=== PATIENT | male | born 1995 | race Caucasian/White ===

== ENCOUNTER 2018-09-16 07:36 | Emergency (ER) | payer OTHER ==
[2018-09-16] MEDS ORDERED: Ibuprofen TAB* 400 MG PO ONE (08:12)
--- NOTE | 2018-09-16 08:12 | UC ---
Throat Pain/Nasal Chace HPI - HPI Summary HPI Summary: 22 y/o male presents to the urgent care c/o subjective fever, headache, intermittent sore throat aggravated by swallowing, myalgias, chills, "a little bit at night" sweats, and fatigue for two to three days. Sore throat has become constant and worse in the last 24 hours, pain w/ swallowing is 5/10. Bilateral tonsillar swelling and erythema. Minimal improvement with OTC "cold and flu" medication. Positive strep throat one month ago. Patient is concerned about mono but states Hx of Mononucleosis at age 7 and since then he has hyperthrophic tonsils. Pt has not taking any medication today for fever or pain. Pt denies SOB, URI, cough, chest pain, abdominal pain, N/V/D. He has been drinking fluids and eating well. - History of Current Complaint Chief Complaint: UCGeneralIllness Stated Complaint: THROAT,FEVER Time Seen by Provider: 09/16/18 08:10 Hx Obtained From: Patient Onset/Duration: Gradual Onset, Lasting Days - 3 days, Still Present, Worse Since - yesterday Severity: Moderate Pain Intensity: 5 Pain Scale Used: 0-10 Numeric Cough: None Associated Signs & Symptoms: Positive: Dysphagia, Fever. Negative: Wheezing, Sinus Discomfort, Nasal Discharge, Rash - Epiglottits Risk Factors Epiglottis Risk Factors: Negative - Allergies/Home Medications Allergies/Adverse Reactions: Allergies Allergy/AdvReac Type Severity Reaction Status Date / Time No Known Allergies Allergy Verified 09/16/18 08:04 PMH/Surg Hx/FS Hx/Imm Hx Previously Healthy: Yes Other Endocrine History: Mononucleosis at age 7 - Surgical History Surgical History: Yes Surgery Procedure, Year, and Place: Pilonidal Cystectomy, 2015, [place] - Family History Known Family History: Positive: None - Pt denies FMHX - Social History Occupation: Student Lives: With Family Alcohol Use: Occasionally Substance Use Type: None Smoking Status (MU): Never Smoked Tobacco - Immunization History Vaccination Up to Date: Yes Review of Systems All Other Systems Reviewed And Are Negative: Yes Constitutional: Positive: Fever, Chills, Fatigue, Other - body aches Skin: Positive: Negative Eyes: Positive: Negative ENT: Positive: Sore Throat Respiratory: Positive: Negative Cardiovascular: Positive: Negative Gastrointestinal: Positive: Negative Genitourinary: Positive: Negative Motor: Positive: Negative Neurovascular: Positive: Negative Musculoskeletal: Positive: Myalgia Neurological: Positive: Headache Psychological: Positive: Negative Is Patient Immunocompromised?: No Physical Exam - Summary Physical Exam Summary: VITAL SIGNS: Reviewed. GENERAL: Patient is a well developed and nourished male who is sitting comfortable in the examining table. Patient is not in any acute respiratory distress. HEAD AND FACE: No signs of trauma. No ecchymosis, hematomas or skull depressions. No sinus tenderness. EYES: PERRLA, EOMI x 2, No injected conjunctiva, no nystagmus. No photophobia. EARS: Hearing grossly intact. Ear canals and tympanic membranes are within normal limits. MOUTH: Positive pharynx with erythema, exudates, palatal petechiae. B/L tonsillar enlargement with mild exudate. Uvula in midline. NECK: Supple, trachea is midline, Positive anterior cervical lymphadenopathy, no JVD, no carotid bruit, no c-spine tenderness, neck with full ROM. No meningeal signs, no Kernig's or brudzinskis signs. CHEST: Symmetric, no tenderness at palpation LUNGS: Clear to auscultation bilaterally. No wheezing or crackles. CVS: Regular rate and rhythm, S1 and S2 present, no murmurs or gallops appreciated. ABDOMEN: Soft, non-tender. No signs of distention. No rebound no guarding, and no masses palpated. Bowel sounds are normal. EXTREMITIES: FROM in all major joints, no edema, no cyanosis or clubbing. NEURO: Alert and oriented x 3. No acute neurological deficits. Speech is normal and follows commands. SKIN: Dry and warm Triage Information Reviewed: Yes Vital Signs: Initial Vital Signs Temp 101.5 F 09/16/18 08:01 Pulse 134 09/16/18 08:01 Resp 18 09/16/18 08:01 BP 132/74 09/16/18 08:01 Pulse Ox 98 09/16/18 08:01 Throat Pain/Nasal Course/Dx - Course Course Of Treatment: 22 y/o male presents to the urgent care c/o subjective fever, headache, intermittent sore throat aggravated by swallowing, myalgias, chills, "a little bit at night" sweats, and fatigue for two to three days. Sore throat has become constant and worse in the last 24 hours, pain w/ swallowing is 5/10. Bilateral tonsillar swelling and erythema. Minimal improvement with OTC "cold and flu" medication. Positive strep throat one month ago. Patient is concerned about mono but states Hx of Mononucleosis at age 7 and since then he has hyperthrophic tonsils. Pt has not taking any medication today for fever or pain. Pt denies SOB, URI, cough, chest pain, abdominal pain, N/V/D. He has been drinking fluids and eating well. Hx obtained. Pt febrile w/ tonsillitis on examination. Rapid strep ordered, result: negative. Rapid Influenza A&B: negative. Pt given Ibuprofen PO by the nurse for fever. Pt tolerated well medication and temp. decrease to 99.8F. Monospot and CBC and throat culture ordered and sent to lab to r/o any abnormality. Pt will be notified of any results. Pt had a vasovagal syncope episode while blood was drowned by the nurse. Pt placed on [place] position and after 5 minutes pat felt better. Pt Rx ibuprofen PO andn Prednisone as directed below to alleviates symptoms of pain and swelling. Advised on hand washing to avoid spreading. Pt advised to rest, eat well and avoid strenuous exercise. If symptoms do not improve or worsen advised to return to the urgent care or f/u with PCP for further evaluation and treatment. Pt understood and agreed - Differential Dx/Diagnosis Differential Diagnosis/HQI/PQRI: Influenza, Laryngitis, Mononucleosis, Pharyngitis, Tonsillitis Provider Diagnosis: Acute tonsillitis Discharge - Sign-Out/Discharge Documenting (check all that apply): Patient Departure - D/C home All imaging exams completed and their final reports reviewed: No Studies - Discharge Plan Condition: Stable Disposition: HOME Prescriptions: Ibuprofen TAB* [Motrin TAB* 600 MG] 600 mg PO Q6H PRN #30 tab PRN Reason: pain/fever predniSONE TAB* [Deltasone 20 MG TAB*] 20 mg PO DAILY #11 tab Patient Education Materials: Tonsillitis (ED) Referrals: [facility] [place] [facility] REFERRAL [Outside] - 3 Days Additional Instructions: 1-Please take ibuprofen PO q6-8hrs prn as instructed after meals to alleviate pain and swelling. Increase fluid intake, eat well, rest and avoid strenuous exercise 2-If symptoms do not improve or worsen please return to the urgent care or f/u with your PCP in 2-3 days for further evaluation and treatment. - Billing Disposition and Condition Condition: STABLE Disposition: Home
[2018-09-16 08:36] LABS: Influenza A Molecular NEGATIVE (Negative); Influenza B Molecular NEGATIVE (Negative)
[2018-09-16 08:57] VITALS: BP 122/66
[2018-09-16 14:55] LABS: ABS Lymphocytes 1.1 10^3/ul (1.0-4.8); ABS Monocytes 1.2 10^3/ul (0-0.8); ABS Neutrophils 10.1 10^3/ul (1.5-7.7); Eosinophil % 0.1 %; Hematocrit 46 % (42-52); Hemoglobin 15.3 g/dL (14.0-18.0); Lymphocyte % 8.7 %; Mean Corpuscular HGB Conc 34 g/dL (31-36); Mean Corpuscular Hemoglobin 30 pg (27-31); Mean Corpuscular Volume 88 fL (80-94); Mean Platelet Volume 9.2 fL (7.4-10.4); Nucleated Red Blood Cells % 0.3; Platelet Count 233 10^3/uL (150-450); Red Blood Count 5.19 10^6 /uL (4.18-5.48); Red Cell Distribution Width 14 % (10.5-15); White Blood Count 12.5 10^3/uL (3.5-10.8)
--- NOTE | 2018-09-17 07:46 | UC ---
- Progress Note Progress Note: Lab results are available for review: CBC with white blood cell count of 12.5, neutrophils at 81% She is diagnosed with acute tonsillitis and is being treated with prednisone and ibuprofen. Flu is negative, strep is negative, Monospot negative RN to call the patient and informed him of results. If she is not improving, she can start antibiotics. She is not allergic to any medication. I have prescribed amoxicillin to the pharmacy. Follow-up with the primary care doctor in 1 week. Course/Dx - Diagnoses Provider Diagnoses: Acute tonsillitis Discharge - Sign-Out/Discharge Documenting (check all that apply): Post-Discharge Follow Up All imaging exams completed and their final reports reviewed: No Studies - Discharge Plan Condition: Stable Disposition: HOME Prescriptions: Ibuprofen TAB* [Motrin TAB* 600 MG] 600 mg PO Q6H PRN #30 tab PRN Reason: pain/fever predniSONE TAB* [Deltasone 20 MG TAB*] 20 mg PO DAILY #11 tab Patient Education Materials: Tonsillitis (ED) Referrals: [facility] [place] [facility] REFERRAL [Outside] - 3 Days Additional Instructions: 1-Please take ibuprofen PO q6-8hrs prn as instructed after meals to alleviate pain, fever and swelling. Take Prednisone PO as directed to alleviate swelling. Increase fluid intake, eat well, rest and avoid strenuous exercise. You can alternate w/ Tylenol PO if fever can't be controlled. 2- Mononuclosis, CBC and throat culture sent to lab to r/o any abnormality. You will be notified of any abnormal result for further management 3-If symptoms do not improve or worsen please return to the urgent care or f/u with your PCP in 3 days for further evaluation and treatment. 4- If fever persists despite taking medication and symptoms worsen, please go immediately to the ER for further evaluation and treatment. - Billing Disposition and Condition Condition: STABLE Disposition: Home
[2018-09-19 14:42] LABS: EBV Capsid Ag IgG Ab Positive (Negative); EBV Capsid Ag IgM Ab Negative (Negative); Epstein-Barr Nuclear Antigen Positive (Negative)
== END 2018-09-16 09:25 | disposition home or self-care (01) ==
LOC: UCCORT 07:36
DX: J03.90 Acute tonsillitis, unspecified (principal)
CPT/HCPCS: 36415; 85025; 86308; 86664; 86665; 87070; 87077; 87651; 99202; A9270-GY; G0463